=== PATIENT | male | born 1960 | race African-American/Black ===

== ENCOUNTER 2022-06-09 05:20 | Emergency (ER) | payer MEDICAID ==
[~2022-06-09] VITALS: Ht 188 cm; Wt 106.6 kg
--- NOTE | 2022-06-09 06:35 | NUR ---
URINE COLLECTED AND SENT TO LAB.
--- NOTE | 2022-06-09 06:35 | NUR ---
URINE COLLECTED AND SENT TO LAB
--- NOTE | 2022-06-09 06:37 | NUR ---
LAB AT BEDSIDE
[2022-06-09 06:58] LABS: BASOPHILS % (AUTO) 0.5 % (0.0-2.0); EOSINOPHILS % (AUTO) 0.1 % (0.0-6.0); HEMATOCRIT 49 % (39-51); HEMOGLOBIN 16.6 g/dL (13.5-17.5); LYMPHOCYTES # (AUTO) 0.7 K/uL (0.8-4.8); LYMPHOCYTES % (AUTO) 9.5 % (20.0-44.0); MEAN CORPUSCULAR HGB CONC 34 g/dl (31.0-36.0); MEAN CORPUSCULAR VOLUME 88 fL (80-96); MONOCYTES # (AUTO) 0.4 K/uL (0.1-1.30); MONOCYTES % (AUTO) 5.6 % (2.0-12.0); NEUTROPHILS # (AUTO) 5.8 K/uL (1.8-8.9); NEUTROPHILS % (AUTO) 84.3 % (43.0-81.0); PLATELET COUNT (AUTO) 242 K/uL (150-450); RED BLOOD CELL COUNT(AUTO) 5.61 MIL/uL (4.5-6.0); WHITE BLOOD COUNT (AUTO) 6.9 K/uL (4.3-11.0)
[2022-06-09 07:14] LABS: ALCOHOL, BLOOD < 3 mg/dL (0-0); CALCIUM, SERUM 9.5 mg/dL (8.5-10.1); CARBON DIOXIDE 29 mmol/L (21-32); CHLORIDE 98 mmol/L (98-107); CREATININE 1.3 mg/dL (0.6-1.3); GLUCOSE 84 mg/dL (74-106); POTASSIUM 3.4 mmol/L (3.5-5.1); SODIUM SERUM 134 mmol/L (136-145); UREA NITROGEN, BLOOD 7 mg/dL (7-18)
[2022-06-09 07:18] LABS: ACETAMINOPHEN < 10 ug/ml (10-30)
--- NOTE | 2022-06-09 07:23 | NUR ---
REPORT GIVEN TO KWASI MCCONNELL FOR [facility]
[2022-06-09 07:30] VITALS: BP 138/96
--- NOTE | 2022-06-09 08:00 | NUR ---
Patient eloped from facility in stable condition. ER MD notified.
== END 2022-06-09 08:26 | disposition left against medical advice (07) ==
LOC: ER 05:25
DX: R20.2 Paresthesia of skin (principal); Z60.2 Problems related to living alone
CPT/HCPCS: 36415; 80048-TC; 85025-TC; G0480